=== PATIENT | female | born 1960 | race Two or more races ===

== ENCOUNTER 2021-11-02 10:38 | Inpatient (IN) | payer MEDICAID, OTHER ==
[~2021-11-02] VITALS: Ht 162.6 cm; Wt 76.5 kg
[2021-11-02 12:07] LABS: Basophils # (auto) 0.1 10 ^3/uL (0-0.2); Eosinophils # (auto) 0.1 10 ^3/uL (0-0.8); Eosinophils % (auto) 1.5 % (0.0-7.0); Hematocrit 40.1 % (36.0-46.0); Lymphocytes # (auto) 2.3 10 ^3/uL (0.4-5.4); Lymphocytes % (auto) 25.3 % (10.0-50.0); Mean Corpuscular Hgb Conc. 32.5 g/dL (32.0-36.0); Mean Corpuscular Volume 92.4 fL (80.0-100.0); Monocytes # (auto) 0.5 10 ^3/uL (0-1.3); Monocytes % (auto) 5.1 % (0.0-12.0); Neutrophils % (auto) 67.1 % (37.0-80.0); Red Blood Cells 4.34 10^6/uL (4.0-5.20); Red Cell Distribution Width 13.8 % (11.8-14.3); White Blood Cell 8.9 10^3/uL (4.4-10.8)
[2021-11-02 12:21] LABS: Albumin 3.7 g/dL (3.4-5.0); BUN/Creatinine Ratio 29.2; Calcium 8.9 mg/dL (8.5-10.1); Potassium 4.6 mmol/L (3.5-5.1)
[2021-11-02 12:22] LABS: INR 0.92 (0.9-1.15); Partial Thromboplastin Time 29.4 sec (24.6-33.4)
[2021-11-02 12:25] LABS: Bilirubin, Total 0.4 mg/dL (0.2-1.0); Total Protein 6.6 g/dL (6.4-8.2)
[2021-11-02] MEDS ORDERED: DOCUSATE SOD 100 MG CAP PO PRN (14:30)
[2021-11-02] MEDS ORDERED: HYDROcodone-ACET 5/325MG TAB PO PRN (14:30)
[2021-11-02] MEDS ORDERED: ACETAMINOPHEN 325 MG TAB PO PRN (14:30)
[2021-11-02] MEDS ORDERED: ONDANSETRON HCL 4 MG/2 ML VIAL IV PRN (14:30)
[2021-11-02] MEDS ORDERED: MORPHINE SULFATE INJ 2 MG/ml SYRG IV PRN (14:30)
[2021-11-02] MEDS ORDERED: hydrALAZINE HCL 20 MG/ML VL IV PRN (17:00)
[2021-11-03 05:03] LABS: Basophils # (auto) 0 10 ^3/uL (0-0.2); Basophils % (auto) 0.6 % (0.0-2.0); Eosinophils # (auto) 0.2 10 ^3/uL (0-0.8); Eosinophils % (auto) 3.8 % (0.0-7.0); Hematocrit 37.1 % (36.0-46.0); Hemoglobin 12.6 g/dL (12.2-16.2); Lymphocytes % (auto) 31.8 % (10.0-50.0); Mean Corpuscular Hemoglobin 30.9 pg (28.0-32.0); Mean Corpuscular Hgb Conc. 33.9 g/dL (32.0-36.0); Monocytes # (auto) 0.6 10 ^3/uL (0-1.3); Monocytes % (auto) 8.7 % (0.0-12.0); Neutrophils # (auto) 3.5 10 ^3/uL (1.6-8.6); Neutrophils % (auto) 55.1 % (37.0-80.0); Red Blood Cells 4.08 10^6/uL (4.0-5.20); Red Cell Distribution Width 13.7 % (11.8-14.3); White Blood Cell 6.4 10^3/uL (4.4-10.8)
[2021-11-03 05:17] LABS: Albumin 3.3 g/dL (3.4-5.0); Calcium 8.8 mg/dL (8.5-10.1); Potassium 4.1 mmol/L (3.5-5.1)
[2021-11-03 05:22] LABS: BUN/Creatinine Ratio 35.6; Bilirubin, Total 0.5 mg/dL (0.2-1.0); Total Protein 6.2 g/dL (6.4-8.2)
[2021-11-03] MEDS: ENOXAPARIN SOD 40 MG/0.4 ML SYRINGE SC SCH (10:42)
[2021-11-03] MEDS ORDERED: CHOL20007 PO (12:27)
[2021-11-03] MEDS ORDERED: OMEG300C7 OR (12:27)
[2021-11-03 13:00] VITALS: BP 144/76
[2021-11-03 16:53] VITALS: BP 130/83
[2021-11-03 22:00] VITALS: BP 154/76
[2021-11-03 23:13] VITALS: BP 154/76
[2021-11-03 23:30] VITALS: BP 64/31
[2021-11-04] MEDS ORDERED: SODIUM CHLORIDE 0.9% 1,000 ML IV ONE
[2021-11-04 00:59] VITALS: BP 134/63
[2021-11-04] MEDS ORDERED: levoFLOXacin 500MG 100 ML IV SCH (01:30)
[2021-11-04 05:00] VITALS: BP 148/67
[2021-11-04] MEDS ORDERED: HYDROcodone-ACET 10/325MG TAB PO PRN (07:30)
[2021-11-04 09:00] VITALS: BP 154/67
[2021-11-04] MEDS: ENOXAPARIN SOD 40 MG/0.4 ML SYRINGE SC SCH (09:03)
[2021-11-04 12:55] VITALS: BP 156/76
[2021-11-04 16:51] VITALS: BP 155/78
[2021-11-04] MEDS ORDERED: DOXY-332 PO (19:16)
[2021-11-04] MEDS ORDERED: HYDR1TAB97 PO (19:16)
== END 2021-11-04 20:00 | disposition home or self-care (01) | DRG 342 ==
LOC: ER 10:38 → OVERFLOW 14:19 → CENTRAL 11-03 11:39
PROVIDERS: ADMIT Internal Medicine; ATTEND Internal Medicine
DX: S42.294A Other nondisplaced fracture of upper end of right humerus, initial encounter for closed fracture (principal); I95.2 Hypotension due to drugs; I10 Essential (primary) hypertension; T46.5X5A Adverse effect of other antihypertensive drugs, initial encounter; Z20.822 Contact with and (suspected) exposure to COVID-19; Y92.89 Other specified places as the place of occurrence of the external cause; Z90.49 Acquired absence of other specified parts of digestive tract
CPT/HCPCS: 36415; 71045; 73030; 73200; 80053; 85025; 85610; 85730; 86850; 86900; 86901; 93306; G0378; J1956